=== PATIENT | male | born 1955 | race Caucasian/White ===

== ENCOUNTER 2017-07-19 13:39 | Day surgery (SDC) | payer OTHER ==
[2017-07-19] MEDS ORDERED: LIDOCAINE 2% (SDV) 5 ML INJ (14:49)
[2017-07-19] MEDS ORDERED: PROPOFOL 20 ML (14:49)
[2017-07-19] MEDS ORDERED: FENTAnyl 50 MCG/ML VIAL ×2 (14:49→14:50)
[2017-07-19] MEDS ORDERED: MIDAZOLAM 1 MG/ML 2 ML INJ (14:50)
== END 2017-07-19 17:04 | disposition home or self-care (01) ==
LOC: GIL 13:39
DX: D12.6 Benign neoplasm of colon, unspecified (principal); K57.90 Diverticulosis of intestine, part unspecified, without perforation or abscess without bleeding; K64.8 Other hemorrhoids; K64.4 Residual hemorrhoidal skin tags; I10 Essential (primary) hypertension
CPT/HCPCS: 45380; 88305

== ENCOUNTER 2018-12-31 11:22 | Day surgery (SDC) | payer OTHER | END 2018-12-31 16:30 | disposition home or self-care (01) | LOC: GIL 11:22 | DX: K29.50 Unspecified chronic gastritis without bleeding (principal); I10 Essential (primary) hypertension | CPT/HCPCS: 43239; 88305; 88312 ==